=== PATIENT | female | born 1935 | race Caucasian/White ===

== ENCOUNTER → 2018-06-22 | Outpatient (REF) | payer MEDICARE, BC ==
[~2018-06-22] MED LIST: AMLODIPINE BESYL5 MG PO; ASPIRIN81 MG PO; CALCIUM + D600 MG PO; CALCIUM 600+D31 TA2 PO; COZAAR50 MG PO; ENTOCORT EC3 MG PO; ESCITALOPRAM OX10 MG PO; ESTRACE VAG0.1 MG/GM VA; FIRST-VANCOM25 MG/ML PO; FISH OIL1000 MG PO; FLORASTOR250 M1 PO; IRON (FERROUS S50 MG PO; LOSARTAN POT50 MG PO; MESALAMINE PO; MULTIVITAMIN WO1 TAB PO; PREDNISONE10 MG PO; PROTONIX40 M2 PO; SINGULAIR10 MG PO; TIZANIDINE HCL2 MG PO; WOMENS 50+ PO; ZETIA10 MG PO; ZOCOR20 MG PO; ZYRTEC10 MG PO
[2018-06-22 11:47] LABS: MEAN CELL VOLUME 92.6 fL CALC (80.0-100.0); MEAN CORPUSCULAR HGB 29.9 pG CALC (26.0-32.0); MEAN CORPUSCULAR HGB CONC 32.3 g/L CALC (32.0-36.0); RED BLOOD COUNT 4.48 mill/uL (4.20-5.60); RED CELL DISTRI WIDTH 14.1 % (11.5-15.5)
[2018-06-22 11:48] LABS: HEMATOCRIT 41.5 % (37.0-47.0); HEMOGLOBIN 13.4 g/dl (12.0-16.0)
[2018-06-22 12:10] LABS: ALKALINE PHOSPHATASE 80 u/l (38-126); BILIRUBIN, TOTAL 0.7 mg/dL (0.0-1.4); BUN 20 mg/dL (8-23); BUN/CREATININE RATIO 22 (12-20 (CALC)); CALCULATED LDLCHOLESTEROL 129 mg/dL (62-129 (CALC)); CHLORIDE 100 mmol/l (95-108); CREATININE 0.9 mg/dL (0.5-1.0); GFR 60 ML/MIN (>=60 (CALC)); GFR FOR AFR.AMER. > 60 ML/MIN (>=60 (CALC)); HDL CHOLESTEROL 77 mg/dL (>=40); SGOT/AST 26 u/l (9-36); SODIUM 139 mmol/l (137-146); TOTAL CHOLESTEROL 230 mg/dl (0-199); TOTAL PROTEIN 7.8 g/dL (6.3-8.2); TOTAL TRIGLYCERIDES 120 mg/dl (30-149); VLDL CHOLESTROL 24 mg/dl (0-48 (CALC))
[2018-06-22 12:14] LABS: ALBUMIN 4.6 g/dL (3.2-5.0); ANION GAP 12 (6-22 (CALC)); CARBON DIOXIDE 31 mmol/l (22-30); POTASSIUM 4.4 mmol/l (3.5-5.1)
[2018-06-22 12:40] LABS: TSH, 3RD GENERATION 4.08 uIU/mL (0.47 - 4.68)
== END | disposition home or self-care (01) ==
LOC: LAB 11:15
PROVIDERS: ATTEND Nurse Practitioner
DX: I10 Essential (primary) hypertension (principal)

== ENCOUNTER 2018-06-27 22:57 | Observation (INO) | payer MEDICARE, BC ==
[~2018-06-27] VITALS: Ht 154.9 cm; Wt 47.0 kg
[~2018-06-27 22:57] MED LIST changes: -AMLODIPINE BESYL5 MG PO; -CALCIUM 600+D31 TA2 PO; -ESCITALOPRAM OX10 MG PO; -IRON (FERROUS S50 MG PO; -LOSARTAN POT50 MG PO; -MULTIVITAMIN WO1 TAB PO; -SINGULAIR10 MG PO; -TIZANIDINE HCL2 MG PO
--- NOTE | 2018-06-27 23:02 | NUR ---
WHEELED PT THROUGH ER TO ROOM 14 AND HAD STROKE ALERT CALLED. PT HAVING EXPRESSIVE APHASIA AND HEADACHE
[2018-06-27 23:24] LABS: GFR 60 ML/MIN (>=60 (CALC)); GFR FOR AFR.AMER. > 60 ML/MIN (>=60 (CALC))
[2018-06-27 23:53] LABS: HEMATOCRIT 39.5 % (37.0-47.0); HEMOGLOBIN 12.5 g/dl (12.0-16.0); IMMATURE GRANULOCYTES 0.3 % (0.0-5.0); MEAN CELL VOLUME 92.9 fL CALC (80.0-100.0); MEAN CORPUSCULAR HGB 29.4 pG CALC (26.0-32.0); MEAN CORPUSCULAR HGB CONC 31.6 g/L CALC (32.0-36.0); NEUT# 2.86 thou/uL (2.00-7.15); RED BLOOD COUNT 4.25 mill/uL (4.20-5.60); RED CELL DISTRI WIDTH 14.4 % (11.5-15.5)
--- NOTE | 2018-06-27 23:53 | NUR ---
PT WAS TAKING STRAIGHT DOWN TO CT VIA WHEELCHAIR, NEVER ACTUALLY GOT INTO ROOM. CT OBTAINED AND IV STARTED WITH BLOOD DRAWN WHILE IN CT. PARTIAL NIHSS WHILE IN CT. PT BACK TO ROOM AND EVALUATED BY MD. HEREDIA AT BEDSIDE SINCE PT CAN NOT TELL ME WHEN SYMPTOMS STARTED. PT VERY VAGUE OTHER THAN STATING SHE HAS BEEN HAVING TROUBLE WITH HER BLOOD PRESSURE AND HER DOCTOR HAS BEEN ADJUSTING HER MEDICATION. 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 STATES NO MUSCLE RELAXER TODAY.
[2018-06-28] VITALS (9 sets, daily range): BP systolic 100–151; BP diastolic 50–74
[2018-06-28 00:01] LABS: ACT PARTIAL THROMBO TIME 28.7 SECONDS (20.0-32.5); PROTHROMBIN TIME 10.7 SECONDS (9.0-12.5)
--- NOTE | 2018-06-28 00:01 | NUR ---
REPORT RECEIVED FROM DIANNA BERNABE.
--- NOTE | 2018-06-28 00:02 | NUR ---
PT ON [facility] WITH [facility].
--- NOTE | 2018-06-28 00:14 | NUR ---
NEURO AT [facility] TO CANCEL STROKE ALERT, NIH 0 DR MAY INFORMED.
[2018-06-28 00:18] LABS: ALBUMIN 4.5 g/dL (3.2-5.0); ALKALINE PHOSPHATASE 82 u/l (38-126); ANION GAP 12 (6-22 (CALC)); BILIRUBIN, TOTAL 0.4 mg/dL (0.0-1.4); BUN 24 mg/dL (8-23); BUN/CREATININE RATIO 28 (12-20 (CALC)); CARBON DIOXIDE 29 mmol/l (22-30); CHLORIDE 101 mmol/l (95-108); CREATININE 0.9 mg/dL (0.5-1.0); GFR 60 ML/MIN (>=60 (CALC)); GFR FOR AFR.AMER. > 60 ML/MIN (>=60 (CALC)); POTASSIUM 4.2 mmol/l (3.5-5.1); SGOT/AST 44 u/l (9-36); SODIUM 138 mmol/l (137-146); TOTAL PROTEIN 8.3 g/dL (6.3-8.2)
--- NOTE | 2018-06-28 01:05 | NUR ---
PT AMB TO BATHROOM WITHOUT DIFFICULTY.
[2018-06-28 01:41] LABS: URINE BILIRUBIN - DIPSTICK NEGATIVE (NEGATIVE); URINE BLOOD DIPSTICK TRACE-INTACT (NEGATIVE); URINE COLOR YELLOW; URINE GLUCOSE - DIPSTICK NEGATIVE (NEGATIVE); URINE KETONE NEGATIVE (NEGATIVE); URINE LEUK ESTERASE NEGATIVE (NEGATIVE); URINE NITRITE - DIPSTICK NEGATIVE (Negative); URINE PROTEIN - DIPSTICK NEGATIVE (NEG-TRACE); URINE UROBILINOGEN - DIPSTICK 0.2 E.U./dL (0.2)
--- NOTE | 2018-06-28 02:43 | NUR ---
PT UNABLE TO LIST MEDICATIONS OR WHEN SHE TOOK THEM LAST. BROUGHT IN BOTTLES OF MEDS.
[2018-06-28] MEDS ORDERED: TIZANIDINE HCL2 MG PO (02:44)
[2018-06-28] MEDS ORDERED: LOSARTAN POT50 MG PO (02:45)
[2018-06-28] MEDS ORDERED: AMLODIPINE BESYL5 MG PO (02:45)
[2018-06-28] MEDS ORDERED: ESCITALOPRAM OX10 MG PO (02:45)
--- NOTE | 2018-06-28 03:24 | NUR ---
REPORT CALLED TO [facility].
--- NOTE | 2018-06-28 03:30 | NUR ---
PT TO RM 262 ON TELE WITH RN. PT COND STABLE. NO CHANGE IN NEURO STATUS. SPEECH REMAINS CLEAR.
--- NOTE | 2018-06-28 03:31 | NUR ---
PATIENT ARRIVED AT FLOOR AT THIS TIME, TRANSPORTED VIA BED, REPORT GIVEN BY ER NURSE MARIELY, PATIENT ORIENTED TO ROOM, AND CALL LIGHT SYSTEM, SETTLED IN BED, ALERT AND ORIENTED X3, STILL HAS UNSTEADY GAIT, CLEAR SPEECH, ABLE TO MOVE ALL EXTREMITIES WITHOUT DRIFT, WITH SALINE LOCK ON LAC G18 PATENT. EVEN UNLABORED BREATHING CALL LIGHT AT REACH
--- NOTE | 2018-06-28 06:45 | NUR ---
REPORT RECEIVED FROM NIGHT NURSE; PT LAYING IN BED WITH EYES CLOSED; RESP EVEN AND UNLABORED; CALL TALLEY IN REACH
--- NOTE | 2018-06-28 08:24 | NUR ---
ASSISTED PT TO BSC, VOIDED CLEAR, YELLOW URINE, MOD SOFT BM; NOW SITTING EDGE OF BED; VITALS OBTAINED; TELE IN PLACE; IV FLUSHED WITHOUT DIFFICULTY, SITE APPEARS HEALTHY; VOICE NO CONCERNS; CALL TALLEY IN REACH; SAFETY PRECAUTION REINFORCE;
--- NOTE | 2018-06-28 11:10 | NUR ---
DR TURCIOS AT BEDSIDE TO DISCUSS POC
--- NOTE | 2018-06-28 12:04 | NUR ---
PT EATING LUNCH, ORTHO VITALS OBTAINED LAYING (56, 115/64) SITTING (59, 103/68) STANDING (63, 88/54) COMPLAIN OF SLIGHT DIZZINESS WHEN STANDING UP; WILL CONTINUE TO MONITOR.
[2018-06-28] MEDS ORDERED: SINGULAIR10 MG PO (13:23)
[2018-06-28] MEDS ORDERED: CALCIUM 600+D31 TA2 PO (13:24)
[2018-06-28] MEDS ORDERED: MULTIVITAMIN WO1 TAB PO (13:24)
[2018-06-28] MEDS ORDERED: IRON (FERROUS S50 MG PO (13:25)
--- NOTE | 2018-06-28 16:07 | NUR ---
PT SITTING UP IN BED; RESP EVEN AND UNLABORED; IVF NS @100CC/HR, INFUSING WELL, SITE APPEARS HEALTHY; MEDICATED PER EMAR; HOME MEDICATIONS BROUGHT IN FOR DR TURCIOS TO VERIFY.
--- NOTE | 2018-06-28 17:31 | NUR ---
PT SITTING UP IN BED VISITING WITH FAMILIES; HOME MEDICATIONS RETURN TO PT; VOICE NO CONCERNS; SAFETY PRECAUTION REINFORCE;
--- NOTE | 2018-06-28 19:00 | NUR ---
RECEIVED REPORT FROM NURSE SILVESTRE, PATIENT IN BED WATCHING TV, NO DISCOMFORTS NOTED AT THIS TIME.CALL LIGHT AT REACH
--- NOTE | 2018-06-28 20:00 | NUR ---
PATIENT RESTING IN BED, DENIES PAIN OR DISCOMFORT, DENIES DIZZINESS, WITH AN ONGOING IVF F NORMAL SALINE @100CC/HR INFUSING WELL ON LAC G18, ON TELE SR 62, PLEASANT, ALERT AND ORIENTED, ABLE TO MOVE ALL EXTREMITIES NO DRIFT, STRONG AGRICULTURAL LENDER, ASSISTED TO THE TOILET, BACK IN BED, CALL LIGHT AT REACH.
--- NOTE | 2018-06-29 04:00 | NUR ---
PATIENT AWAKE, ASSISTED TO THE TOILET, DENIES PAIN OR DIZZINESS, ASSISTED BACK IN BED, CALL LIGHT AT REACH.
[2018-06-29 04:23] VITALS: BP 138/75
[2018-06-29 05:39] LABS: HEMATOCRIT 37.8 % (37.0-47.0); HEMOGLOBIN 12.3 g/dl (12.0-16.0); MEAN CELL VOLUME 92.4 fL CALC (80.0-100.0); MEAN CORPUSCULAR HGB 30.1 pG CALC (26.0-32.0); MEAN CORPUSCULAR HGB CONC 32.5 g/L CALC (32.0-36.0); NEUT# 1.63 thou/uL (2.00-7.15); RED BLOOD COUNT 4.09 mill/uL (4.20-5.60); RED CELL DISTRI WIDTH 14.4 % (11.5-15.5)
--- NOTE | 2018-06-29 05:56 | NUR ---
ORTHOSTATIC BLOOD PRESSURE TAKEN LAYING 136/90 MMHG, SITTING 132/82 MMHG, STANDING 122/80, PATIENT STATED SLIGHT DIZZINESS UPON STANDING.
[2018-06-29 06:08] LABS: ALKALINE PHOSPHATASE 66 u/l (38-126); AMYLASE 60 u/l (30-110); ANION GAP 14 (6-22 (CALC)); BILIRUBIN, TOTAL 0.6 mg/dL (0.0-1.4); BUN 16 mg/dL (8-23); BUN/CREATININE RATIO 21 (12-20 (CALC)); CARBON DIOXIDE 27 mmol/l (22-30); CHLORIDE 104 mmol/l (95-108); CREATININE 0.8 mg/dL (0.5-1.0); GFR > 60 ML/MIN (>=60 (CALC)); GFR FOR AFR.AMER. > 60 ML/MIN (>=60 (CALC)); LIPASE 131 u/l (23-300); POTASSIUM 4.4 mmol/l (3.5-5.1); SGOT/AST 21 u/l (9-36); SODIUM 140 mmol/l (137-146); TOTAL PROTEIN 6.8 g/dL (6.3-8.2)
--- NOTE | 2018-06-29 06:50 | NUR ---
PT REPORT RECIEVED FROM SRINIVASA WHITEHEAD. PT SLEEPING. NO S/S OF DISTRESS. CALL LIGHT IN REACH. WILL CONTINUE TO MONITOR.
[2018-06-29 09:09] VITALS: BP 130/80
--- NOTE | 2018-06-29 09:09 | NUR ---
PT A/O X3. SPEECH IS CLEAR. RESP EVEN AND UNLABORED. LUNG SOUNDS CLEAR. BOWEL SOUNDS ACTIVE X4. STRONG RADIAL AND PEDAL PULSES. #18 LAC NS @100. SITE APPEARS HEALTHY. SKIN INTACT. PT DENIES ANY PAIN OR NEEDS. POC DISCUSSED. SAFETY PRECAUTIONS IN PLACE. CALL LIGHT IN REACH. WILL CONTINUE TO MONITOR.
[2018-06-29 09:14] VITALS: BP 135/75
[2018-06-29 09:19] VITALS: BP 129/80
[2018-06-29 11:00] VITALS: BP 155/53
--- NOTE | 2018-06-29 12:00 | NUR ---
PT RESTING IN BED. NO C/O PAIN OR NEEDS. TELE IN PLACE. CALL LIGHT IN REACH. WILL CONTINUE TO MONITOR
--- NOTE | 2018-06-29 13:17 | NUR ---
D/C INSTRUCTIONS DISCUSSED W/ PT. PT STATES UNDERSTANDING. IV REMOVED. CATHETER INTACT. PT GETTING DRESSED AT THIS TIME. WAITING TO TALK W/ BENCH MECHANIC.
--- NOTE | 2018-06-29 13:40 | NUR ---
Discharge instructions given. Patient verbalizes understanding of same. Discharged in stable condition via Ambulatory to Home with family. All belongings sent with pt.
== END 2018-06-29 13:45 | disposition home or self-care (01) ==
LOC: ED 22:57 → ED-I 06-28 01:00 → ED 06-28 01:17 → MS2 06-28 01:18
PROVIDERS: Family Medicine; Internal Medicine Nephrology; ADMIT Internal Medicine; ATTEND Internal Medicine
DX: I95.2 Hypotension due to drugs (principal); T46.5X5A Adverse effect of other antihypertensive drugs, initial encounter; T48.205A Adverse effect of unspecified drugs acting on muscles, initial encounter; I10 Essential (primary) hypertension; F32.9 Major depressive disorder, single episode, unspecified; F41.9 Anxiety disorder, unspecified; K52.832 Lymphocytic colitis; R47.01 Aphasia; R42 Dizziness and giddiness; R51 Headache
CPT/HCPCS: G0378; J1650

== ENCOUNTER 2019-04-09 | Emergency (ER) | payer MEDICARE, BC ==
[~2019-04-09] MED LIST changes: +AMLODIPINE BESYL5 MG PO; +CALCIUM 600+D31 TA2 PO; +ESCITALOPRAM OX10 MG PO; +IRON (FERROUS S50 MG PO; +LOSARTAN POT50 MG PO; +MULTIVITAMIN WO1 TAB PO; +SINGULAIR10 MG PO; +TIZANIDINE HCL2 MG PO
[2019-04-09] MEDS ORDERED: RANITIDINE150 M1 PO (16:53)
[2019-04-09] MEDS ORDERED: PROTONIX40 M2 PO (16:53)
[2019-04-09] MEDS ORDERED: LOSARTAN POTASS50 MG PO (16:55)
[2019-04-09] MEDS ORDERED: ZYRTEC10 MG PO (16:56)
[2019-04-09] MEDS ORDERED: CHOLESTYRAMINE4 G1 PO (16:56)
[2019-04-09 17:15] LABS: HEMATOCRIT 41.8 % (37.0-47.0); HEMOGLOBIN 13.7 g/dl (12.0-16.0); IMMATURE GRANULOCYTES 0.3 % (0.0-5.0); MEAN CELL VOLUME 95.2 fL CALC (80.0-100.0); MEAN CORPUSCULAR HGB 31.2 pG CALC (26.0-32.0); MEAN CORPUSCULAR HGB CONC 32.8 g/L CALC (32.0-36.0); NEUT# 5.53 thou/uL (2.00-7.15); RED BLOOD COUNT 4.39 mill/uL (4.20-5.60); RED CELL DISTRI WIDTH 13.9 % (11.5-15.5)
[2019-04-09 17:21] LABS: ALBUMIN 4.8 g/dL (3.2-5.0); ALKALINE PHOSPHATASE 87 u/l (38-126); AMYLASE 114 u/l (30-110); ANION GAP 15 (6-22 (CALC)); BILIRUBIN, TOTAL 0.8 mg/dL (0.0-1.4); BUN 13 mg/dL (8-23); BUN/CREATININE RATIO 15 (12-20 (CALC)); CARBON DIOXIDE 25 mmol/l (22-30); CHLORIDE 102 mmol/l (95-108); CREATININE 0.8 mg/dL (0.5-1.0); GFR > 60 ML/MIN (>=60 (CALC)); GFR FOR AFR.AMER. > 60 ML/MIN (>=60 (CALC)); LIPASE 118 u/l (23-300); POTASSIUM 3.8 mmol/l (3.5-5.1); SODIUM 138 mmol/l (137-146); TOTAL PROTEIN 8.5 g/dL (6.3-8.2)
[2019-04-09 17:29] LABS: SGOT/AST 53 u/l (9-36)
[2019-04-09] MEDS ORDERED: MEDDOSEPAK PO (18:55)
[2019-04-09] MEDS ORDERED: CODEINE/GUAIFEN1 SOL PO (18:55)
[2019-06-30] MEDS ORDERED: AMITRIPTYLIN10 MG PO (13:41)
[2019-06-30] MEDS ORDERED: CETIRIZINE10 MG PO (13:41)
[2019-06-30] MEDS ORDERED: ASPIRIN81 MG PO (13:41)
[2019-06-30] MEDS ORDERED: FLONASE AL50 MCG/ACT (13:42)
[2019-06-30] MEDS ORDERED: LEXAPRO10 MG PO (13:43)
[2019-06-30] MEDS ORDERED: IRON PO (13:43)
== END 2019-04-09 19:25 | disposition home or self-care (01) ==
DX: J98.01 Acute bronchospasm (principal); K21.9 Gastro-esophageal reflux disease without esophagitis; I10 Essential (primary) hypertension

== ENCOUNTER 2021-04-11 07:40 | Emergency (ER) | payer MEDICARE, BC ==
[~2021-04-11] VITALS: Ht 157.5 cm; Wt 45.0 kg
[~2021-04-11 07:40] MED LIST changes: +AMITRIPTYLIN10 MG PO; +BUDESONIDE3 MG PO; +CETIRIZINE10 MG PO; +CHOLESTYRAMINE4 G1 PO; +CODEINE/GUAIFEN1 SOL PO; +FAMOTIDINE40 M1 PO; +FLONASE AL50 MCG/ACT; +IRON PO; +LEXAPRO10 MG PO; +LOMOTIL2.5 MG PO; +LOSARTAN POTASS50 MG PO; +MEDDOSEPAK PO; +RANITIDINE150 M1 PO; +ZOFRAN4 MG/TAB PO
[2021-04-11 08:40] LABS: HEMATOCRIT 41.5 % (37.0-47.0); MEAN CORPUSCULAR HGB 31.6 pG CALC (26.0-32.0); MEAN CORPUSCULAR HGB CONC 33.3 g/dL CAL (32.0-36.0); NEUT# 2.11 thou/uL (2.00-7.15); RED BLOOD COUNT 4.37 mill/uL (4.20-5.60); RED CELL DISTRI WIDTH 13.5 % (11.5-15.5)
[2021-04-11 08:41] LABS: HEMOGLOBIN 13.8 g/dl (12.0-16.0)
[2021-04-11 08:55] LABS: ALBUMIN 4.8 g/dL (3.2-5.0); CREATININE 1.2 mg/dL (0.5-1.0); POTASSIUM 4.3 mmol/l (3.5-5.1)
[2021-04-11 08:56] LABS: BILIRUBIN, TOTAL 0.9 mg/dL (0.0-1.4); TOTAL PROTEIN 8.6 g/dL (6.3-8.2)
[2021-04-11] MEDS ORDERED: MULTIVITAMI9 PO (10:22)
[2021-04-11] MEDS ORDERED: ZYRTEC10 MG PO (10:22)
[2021-04-11] MEDS ORDERED: MELATONIN5 MG PO (10:22)
[2021-04-11] MEDS ORDERED: IMODIUM A-D2 M3 PO (14:18)
[2021-04-11 14:28] VITALS: BP 129/98
== END 2021-04-11 14:28 | disposition home or self-care (01) ==
LOC: ED 07:40
PROVIDERS: Family Medicine
DX: K52.9 Noninfective gastroenteritis and colitis, unspecified (principal); I10 Essential (primary) hypertension; K21.9 Gastro-esophageal reflux disease without esophagitis; Z87.01 Personal history of pneumonia (recurrent); Z20.822 Contact with and (suspected) exposure to COVID-19
CPT/HCPCS: Q9967

== ENCOUNTER 2021-04-18 12:34 | Emergency (ER) | payer MEDICARE, BC ==
[~2021-04-18] VITALS: Ht 157.5 cm; Wt 50.9 kg
[~2021-04-18 12:34] MED LIST changes: +IMODIUM A-D2 M3 PO; +MELATONIN5 MG PO; +MULTIVITAMI9 PO
[2021-04-18 13:31] LABS: HEMATOCRIT 37.1 % (37.0-47.0); HEMOGLOBIN 12.3 g/dl (12.0-16.0); MEAN CELL VOLUME 95.1 fL CALC (80.0-100.0); MEAN CORPUSCULAR HGB 31.5 pG CALC (26.0-32.0); MEAN CORPUSCULAR HGB CONC 33.2 g/dL CAL (32.0-36.0); NEUT# 1.99 thou/uL (2.00-7.15); RED BLOOD COUNT 3.9 mill/uL (4.20-5.60); RED CELL DISTRI WIDTH 13.6 % (11.5-15.5)
[2021-04-18 14:02] LABS: ALBUMIN 4.1 g/dL (3.2-5.0); ALKALINE PHOSPHATASE 85 u/l (38-126); ANION GAP 10 (6-22 (CALC)); BILIRUBIN, TOTAL 0.7 mg/dL (0.0-1.4); BUN 18 mg/dL (8-23); BUN/CREATININE RATIO 17 (12-20 (CALC)); CARBON DIOXIDE 28 mmol/l (22-30); CHLORIDE 104 mmol/l (95-108); GFR 53 ML/MIN (>=60 (CALC)); GFR FOR AFR.AMER. > 60 ML/MIN (>=60 (CALC)); POTASSIUM 4.5 mmol/l (3.5-5.1); SGOT/AST 32 u/l (9-36); SODIUM 138 mmol/l (137-146); TOTAL PROTEIN 7.7 g/dL (6.3-8.2)
[2021-04-18 15:09] VITALS: BP 164/72
== END 2021-04-18 14:30 | disposition left against medical advice (07) ==
LOC: ED 12:34
PROVIDERS: Family Medicine
DX: R19.7 Diarrhea, unspecified (principal); I10 Essential (primary) hypertension; K21.9 Gastro-esophageal reflux disease without esophagitis; Z91.19 Patient's noncompliance with other medical treatment and regimen; Z87.01 Personal history of pneumonia (recurrent); Z20.822 Contact with and (suspected) exposure to COVID-19

== ENCOUNTER 2022-04-11 01:20 | Emergency (ER) | payer MEDICARE ==
[~2022-04-11] VITALS: Ht 157.5 cm; Wt 43.0 kg
[2022-04-11] VITALS (7 sets, daily range): BP systolic 123–160; BP diastolic 65–85
[2022-04-11] MEDS ORDERED: ESCITALOPRAM OX10 MG PO (01:47)
[2022-04-11] MEDS ORDERED: GAVISCO3 PO (01:47)
[2022-04-11] MEDS ORDERED: FLORASTOR250 M1 PO (01:48)
[2022-04-11] MEDS ORDERED: MONTELUKAST SOD10 MG PO (01:49)
[2022-04-11 02:16] LABS: BASO% 0.2 % (0-3); EOS% 0.5 % (0-8); HEMATOCRIT 42.6 % (37.0-47.0); HEMOGLOBIN 13.8 g/dl (12.0-16.0); IMMATURE GRANULOCYTES 0.3 % (0.0-5.0); LYMPH% 9.4 % (15-41); MEAN CELL VOLUME 94.9 fL CALC (80.0-100.0); MEAN CORPUSCULAR HGB 30.7 pG CALC (26.0-32.0); MEAN CORPUSCULAR HGB CONC 32.4 g/dL CAL (32.0-36.0); MONO% 6.2 % (2-13); NEUT# 5.54 thou/uL (2.00-7.15); NEUT% 83.4 % (42-76); RED BLOOD COUNT 4.49 mill/uL (4.20-5.60); RED CELL DISTRI WIDTH 13.6 % (11.5-15.5)
[2022-04-11 02:31] LABS: ALBUMIN 4.4 g/dL (3.2-5.0); BILIRUBIN, TOTAL 0.6 mg/dL (0.0-1.4); CREATININE 1.3 mg/dL (0.5-1.0); POTASSIUM 3.7 mmol/l (3.5-5.1); TOTAL PROTEIN 7.7 g/dL (6.3-8.2)
[2022-04-11] MEDS ORDERED: PROCHLORPER25 MG RE (04:05)
== END 2022-04-11 04:55 | disposition home or self-care (01) ==
LOC: ED 01:20
PROVIDERS: Family Medicine
DX: R11.2 Nausea with vomiting, unspecified (principal); R19.7 Diarrhea, unspecified; I10 Essential (primary) hypertension; K21.9 Gastro-esophageal reflux disease without esophagitis; Z20.822 Contact with and (suspected) exposure to COVID-19

== ENCOUNTER 2022-04-15 15:18 | Observation (INO) | payer MEDICARE ==
[~2022-04-15] VITALS: Ht 157.5 cm; Wt 41.0 kg
[2022-04-15] VITALS (22 sets, daily range): BP systolic 115–168; BP diastolic 62–110
[~2022-04-15 15:18] MED LIST changes: +GAVISCO3 PO; +MONTELUKAST SOD10 MG PO; +PROCHLORPER25 MG RE
[2022-04-15 16:26] LABS: BASO% 0.3 % (0-3); EOS% 0.3 % (0-8); HEMATOCRIT 43.1 % (37.0-47.0); HEMOGLOBIN 14.6 g/dl (12.0-16.0); IMMATURE GRANULOCYTES 0.2 % (0.0-5.0); MEAN CELL VOLUME 95.8 fL CALC (80.0-100.0); MEAN CORPUSCULAR HGB 32.4 pG CALC (26.0-32.0); MEAN CORPUSCULAR HGB CONC 33.9 g/dL CAL (32.0-36.0); MONO% 3.2 % (2-13); NEUT# 8.66 thou/uL (2.00-7.15); RED BLOOD COUNT 4.5 mill/uL (4.20-5.60); RED CELL DISTRI WIDTH 13.9 % (11.5-15.5)
[2022-04-15 16:45] LABS: ALBUMIN 4.7 g/dL (3.2-5.0); ALKALINE PHOSPHATASE 73 u/l (38-126); AMYLASE 103 u/l (30-110); ANION GAP 18 (6-22 (CALC)); BILIRUBIN, TOTAL 0.7 mg/dL (0.0-1.4); BUN 15 mg/dL (8-23); BUN/CREATININE RATIO 12 (12-20 (CALC)); CARBON DIOXIDE 23 mmol/l (22-30); CHLORIDE 105 mmol/l (95-108); CREATININE 1.2 mg/dL (0.5-1.0); GFR FOR AFR.AMER. 52 ML/MIN (>=60 (CALC)); GFR OTHER RACES 43 ML/MIN (>=60 (CALC)); LIPASE 282 u/l (23-300); POTASSIUM 3.5 mmol/l (3.5-5.1); SGOT/AST 40 u/l (9-36); SODIUM 143 mmol/l (137-146); TOTAL PROTEIN 8.2 g/dL (6.3-8.2)
[2022-04-16] VITALS (8 sets, daily range): BP systolic 115–166; BP diastolic 59–73
[2022-04-16] MEDS ORDERED: LYRICA25 MG PO (00:09)
[2022-04-16] MEDS ORDERED: DILTIAZEM HYDR120 MG MT (00:15)
[2022-04-16 00:38] LABS: URINE BILIRUBIN - DIPSTICK NEGATIVE (NEGATIVE); URINE BLOOD DIPSTICK NEGATIVE (NEGATIVE); URINE COLOR YELLOW; URINE GLUCOSE - DIPSTICK NEGATIVE (NEGATIVE); URINE KETONE TRACE mg/dL (NEGATIVE); URINE PROTEIN - DIPSTICK NEGATIVE (NEG-TRACE); URINE SPECIFIC GRAVITY >=1.030; URINE UROBILINOGEN - DIPSTICK 0.2 E.U./dL (0.2)
[2022-04-16 00:46] LABS: URINE LEUK ESTERASE SMALL (NEGATIVE); URINE NITRITE - DIPSTICK NEGATIVE (Negative)
[2022-04-16 00:47] LABS: URINE AMORPH SEDIMENT FEW hpf (NONE-FEW); URINE BACTERIA FEW hpf; URINE SQUAMOUS EPITHELIAL CELL FEW EPI/hpf (0-FEW); URINE URIC ACID CRYSTALS FEW lpf
[2022-04-17] VITALS (7 sets, daily range): BP systolic 138–177; BP diastolic 63–87
[2022-04-17 06:00] LABS: BASO% 0.2 % (0-3); EOS% 2.1 % (0-8); IMMATURE GRANULOCYTES 0.2 % (0.0-5.0); LYMPH% 25.7 % (15-41); MEAN CORPUSCULAR HGB 32.6 pG CALC (26.0-32.0); MEAN CORPUSCULAR HGB CONC 33.6 g/dL CAL (32.0-36.0); NEUT# 3.07 thou/uL (2.00-7.15); NEUT% 64.8 % (42-76); RED BLOOD COUNT 3.37 mill/uL (4.20-5.60); RED CELL DISTRI WIDTH 14.3 % (11.5-15.5)
[2022-04-17 06:26] LABS: HEMATOCRIT 32.7 % (37.0-47.0)
[2022-04-17 06:27] LABS: ALKALINE PHOSPHATASE 44 u/l (38-126); ANION GAP 10 (6-22 (CALC)); BILIRUBIN, TOTAL 0.8 mg/dL (0.0-1.4); BUN 10 mg/dL (8-23); BUN/CREATININE RATIO 12 (12-20 (CALC)); CARBON DIOXIDE 26 mmol/l (22-30); CHLORIDE 113 mmol/l (95-108); CREATININE 0.9 mg/dL (0.5-1.0); GFR FOR AFR.AMER. > 60 ML/MIN (>=60 (CALC)); GFR OTHER RACES 60 ML/MIN (>=60 (CALC)); POTASSIUM 3.5 mmol/l (3.5-5.1); SGOT/AST 27 u/l (9-36); SODIUM 144 mmol/l (137-146)
[2022-04-17 06:37] LABS: ALBUMIN 3.2 g/dL (3.2-5.0); TOTAL PROTEIN 5.9 g/dL (6.3-8.2)
[2022-04-17] MEDS ORDERED: ZOFRAN4 MG/TAB PO (11:37)
== END 2022-04-17 16:39 | disposition home or self-care (01) ==
LOC: ED 15:18 → ED-I 18:10 → ED 18:37 → MS2 18:38
PROVIDERS: Emergency Medicine; Nurse Practitioner Family; ADMIT Internal Medicine; ATTEND Internal Medicine
DX: K52.9 Noninfective gastroenteritis and colitis, unspecified (principal); I10 Essential (primary) hypertension; K21.00 Gastro-esophageal reflux disease with esophagitis, without bleeding; F41.9 Anxiety disorder, unspecified; F32.A Depression, unspecified; K59.00 Constipation, unspecified; Z87.19 Personal history of other diseases of the digestive system; Z20.822 Contact with and (suspected) exposure to COVID-19

== ENCOUNTER 2022-04-28 09:43 | Day surgery (SDC) | payer MEDICARE ==
[~2022-04-28] VITALS: Ht 154.9 cm; Wt 45.4 kg
[~2022-04-28 09:43] MED LIST changes: +DILTIAZEM HYDR120 MG MT; +LYRICA25 MG PO
[2022-04-28 13:50] VITALS: BP 172/90
== END 2022-04-28 13:36 | disposition home or self-care (01) ==
LOC: ORM 09:43
PROVIDERS: ATTEND Internal Medicine Gastroenterology
PROC: 3E0G8GC Introduction of Other Therapeutic Substance into Upper GI, Via Natural or Artificial Opening Endoscopic (ICD-10-PCS; principal; 2022-04-28)
PROC: 0DB98ZX Excision of Duodenum, Via Natural or Artificial Opening Endoscopic, Diagnostic (ICD-10-PCS; 2022-04-28)
PROC: 0DB78ZX Excision of Stomach, Pylorus, Via Natural or Artificial Opening Endoscopic, Diagnostic (ICD-10-PCS; 2022-04-28)
PROC: 0DB48ZX Excision of Esophagogastric Junction, Via Natural or Artificial Opening Endoscopic, Diagnostic (ICD-10-PCS; 2022-04-28)
DX: K22.4 Dyskinesia of esophagus (principal); K44.9 Diaphragmatic hernia without obstruction or gangrene; K29.50 Unspecified chronic gastritis without bleeding; E78.5 Hyperlipidemia, unspecified; I10 Essential (primary) hypertension
CPT/HCPCS: J0585

== ENCOUNTER 2024-05-01 19:22 | Emergency (ER) | payer MEDICARE, BC ==
[~2024-05-01] VITALS: Ht 154.9 cm; Wt 42.0 kg
[2024-05-01] MEDS ORDERED: IBUPROFEN 600 MG/TAB PO ONE (19:35)
[2024-05-01] MEDS ORDERED: OXYMETAZOLINE HCL 15 ML/BTL ONE (19:35)
[2024-05-01] MEDS ORDERED: ACETAMINOPHEN 325 MG/TAB PO ONE (19:35)
[2024-05-01 19:52] VITALS: BP 152/85
== END 2024-05-01 19:52 | disposition home or self-care (01) ==
LOC: ED 19:22
DX: H69.93 Unspecified Eustachian tube disorder, bilateral (principal); I10 Essential (primary) hypertension

== ENCOUNTER 2024-06-27 14:41 | Observation (INO) | payer MEDICARE, BC ==
[~2024-06-27] VITALS: Ht 154.9 cm; Wt 43.0 kg
[2024-06-27] VITALS (24 sets, daily range): BP systolic 115–194; BP diastolic 66–130
[2024-06-27] MEDS ORDERED: ASPIRIN 81 MG/TAB PO ONE (15:05)
[2024-06-27] MEDS ORDERED: NITROGLYCERIN 0.4 MG/TAB SL ONE (15:05)
[2024-06-27 15:09] LABS: BASO% 0.4 % (0-3); EOS% 1.8 % (0-8); HEMATOCRIT 38.4 % (37.0-47.0); HEMOGLOBIN 12.6 g/dl (12.0-16.0); IMMATURE GRANULOCYTES 0.2 % (0.0-5.0); LYMPH% 28.3 % (15-41); MEAN CELL VOLUME 95.3 fL CALC (80.0-100.0); MEAN CORPUSCULAR HGB 31.3 pG CALC (26.0-32.0); MEAN CORPUSCULAR HGB CONC 32.8 g/dL CAL (32.0-36.0); MONO% 7.5 % (2-13); NEUT# 3.04 thou/uL (2.00-7.15); NEUT% 61.8 % (42-76); RED BLOOD COUNT 4.03 mill/uL (4.20-5.60); RED CELL DISTRI WIDTH 15.5 % (11.5-15.5)
[2024-06-27 15:24] LABS: ALBUMIN 4.2 g/dL (3.2-5.0); ALKALINE PHOSPHATASE 92 u/l (38-126); ANION GAP 12 (6-22 (CALC)); BUN 19 mg/dL (8-23); BUN/CREATININE RATIO 20 (12-20 (CALC)); CARBON DIOXIDE 26 mmol/l (22-30); CHLORIDE 104 mmol/l (95-108); CREATININE 0.9 mg/dL (0.5-1.0); ESTIMATED GFR 62 ML/MIN (>=90 (CALC)); LIPASE 140 u/l (23-300); POTASSIUM 4.1 mmol/l (3.5-5.1); SGOT/AST 35 u/l (9-36); SODIUM 138 mmol/l (137-146); TOTAL PROTEIN 7.5 g/dL (6.3-8.2)
[2024-06-27] MEDS ORDERED: MORPHINE SULFATE 4 MG/ML VIAL IV ONE (16:55)
[2024-06-27] MEDS ORDERED: ALPRAZolam 0.25 MG PO ONE (16:55)
[2024-06-27 17:14] LABS: URINE BLOOD DIPSTICK Negative (NEGATIVE); URINE GLUCOSE - DIPSTICK Negative (NEGATIVE); URINE KETONE 40 mg/dL (NEGATIVE); URINE LEUK ESTERASE Negative (NEGATIVE); URINE NITRITE - DIPSTICK Negative (Negative); URINE PROTEIN - DIPSTICK Negative (NEG-TRACE); URINE UROBILINOGEN - DIPSTICK 0.2 E.U./dL (0.2)
[2024-06-27 17:18] LABS: URINE COLOR Yellow
[2024-06-27] MEDS ORDERED: ACETAMINOPHEN 325 MG/TAB PO PRN (19:30)
[2024-06-27] MEDS ORDERED: MAGNESIUM HYDROXIDE 30 ML UDC PO PRN (19:30)
[2024-06-27] MEDS ORDERED: Zaleplon 5 MG/CAP PO PRN (19:30)
[2024-06-27] MEDS ORDERED: ENOXAPARIN SODIUM 40 MG/0.4 ML SYR SC SCH (21:00)
[2024-06-28 00:50] VITALS: BP 157/66
[2024-06-28 04:12] VITALS: BP 186/73
[2024-06-28 05:38] VITALS: BP 139/62
[2024-06-28 06:02] VITALS: BP 120/93
[2024-06-28 06:10] VITALS: BP 186/73
[2024-06-28 06:25] LABS: CHOLESTEROL HDL RATIO 3.1 (<4.4 (CALC))
[2024-06-28 08:07] VITALS: BP 151/70
[2024-06-28] MEDS ORDERED: ESCITALOPRAM 10 MG/TAB PO SCH (09:00)
[2024-06-28] MEDS ORDERED: PANTOPRAZOLE SODIUM Sesquihydr 40 MG/TAB PO SCH (09:00)
[2024-06-28] MEDS ORDERED: ENOXAPARIN SODIUM 30 MG/0.3 ML INJ SC SCH (21:00)
== END 2024-06-28 12:27 | disposition home or self-care (01) ==
LOC: ED 14:41 → MS2 17:53
PROVIDERS: Nurse Practitioner; ADMIT Internal Medicine; ATTEND Internal Medicine
DX: R07.9 Chest pain, unspecified (principal); I10 Essential (primary) hypertension; K21.9 Gastro-esophageal reflux disease without esophagitis; F41.9 Anxiety disorder, unspecified; F32.A Depression, unspecified; Z86.19 Personal history of other infectious and parasitic diseases
CPT/HCPCS: G0378; J1650